=== PATIENT | male | born 1965 | race Caucasian/White ===

== ENCOUNTER → 2019-02-19 | Outpatient (CLI) | payer BC ==
--- NOTE | 2019-02-22 22:10 | SLE ---
[facility] [place] [address] POLYSOMNOGRAPHY STUDY Name: KIKO FLOYD Room #: [facility]#: [id number] Admission: 02/19/19 Attend Phys: Paul Damico MD Discharge: Date of : 67 Report #: [id number] THIS REPORT FOR: //name// CC: Paul Araya MD DATE OF SERVICE: 02/19/2019 SLEEP STUDY ATTENDING PHYSICIAN: Dr. Msiha Araya. INDICATION FOR STUDY: The patient is 53-year-old, who weighs 258 pounds with a BMI of 37. The patient was diagnosed with severe sleep apnea at an AHI of 82 per hour during home sleep study. The patient came for in-lab CPAP titration study. During the night study, the patient spent 440 minutes in bed and slept for 395 minutes with a sleep efficiency of 89%. Sleep latency was 4.9 minutes with a REM latency of 28 minutes, which is short. Sleep architecture showed normal stage 1 and stage 2 sleep, increased slow wave and normal REM sleep. EKG monitoring revealed an average heart rate of 61 beats per minute. No sustained arrhythmias observed. PLMS were not observed. The patient was started on CPAP at a pressure of 5 cm water and titrated up to 15 cm water. At the final pressure, the patient slept for 40 minutes including 22.5 minutes of supine and lateral REM sleep. The patient's AHI was reduced to 3 per hour and oxygen saturation remained above 94%. IMPRESSION: 1. Severe sleep apnea diagnosed by home sleep study. 2. No clinically significant periodic limb movements. RECOMMENDATIONS: 1. CPAP at 15 cm water completely eliminated the patient's sleep apnea and should be used on a nightly basis. 2. Follow up in 4-6 weeks to assess compliance with CPAP and to document clinical improvement. 3. Weight loss is strongly advised. 4. Avoid [employer] depressants. [facility] [address] [place] [address] POLYSOMNOGRAPHY STUDY Name: MARIELKIKO ELLSWORTH Room #: [facility]#: [id number] Admission: 02/19/19 Attend Phys: Paul Damico MD Discharge: Date of : 67 Report #: [id number] 5. Cautioned regarding driving until symptoms of sleep apnea resolve with the use of CPAP. <ELECTRONICALLY SIGNED> By: Paul Damico MD 02/22/192209 [id number] Paul Damico MD /nt
== END ==
LOC: SLEEPLAB 09:09
DX: G47.30 Sleep apnea, unspecified (principal)